=== PATIENT | male | born 1955 | race Caucasian/White ===

== ENCOUNTER 2020-06-18 22:17 | Emergency (ER) | payer BC ==
[~2020-06-18] VITALS: Ht 177.8 cm; Wt 83.9 kg
[2020-06-19] MEDS ORDERED: FINA5 PO
[2020-06-19] MEDS ORDERED: TAMS.4ER PO ×2 (00:01)
== END 2020-06-19 01:00 | disposition home or self-care (01) ==
LOC: ER 22:17
DX: T83.031A Leakage of indwelling urethral catheter, initial encounter (principal); Z79.899 Other long term (current) drug therapy
CPT/HCPCS: 99282